=== PATIENT | male | born 1955 | race Caucasian/White ===

== ENCOUNTER 2016-10-11 09:39 | Outpatient (CLI) | payer OTHER ==
--- NOTE | 2016-10-11 10:21 | DIAGNOSTIC IMAGING REPORT ---
PROCEDURE: XR CHEST 2 VIEW INDICATION: CHEST DISCOMFORT TECHNIQUE: PA and lateral views. COMPARISON: None. FINDINGS: Lungs are clear. Heart and mediastinum are normal. Thorax is normal. IMPRESSION: 1. Negative chest.
== END 2016-10-11 23:00 ==
LOC: XR SRH 09:39
DX: R07.89 Other chest pain (principal)

== ENCOUNTER → 2016-11-08 | Outpatient (CLI) | payer OTHER ==
--- NOTE | 2016-11-13 08:15 | DIAGNOSTIC IMAGING REPORT ---
PROCEDURE: 2-D M-mode echo Doppler CLINICAL INDICATION: Heart murmur TECHNIQUE: Standard technique COMPARISON: None available FINDINGS: The aortic valve exhibits normal appearing amplitude without evidence for stenosis or insufficiency. The mitral valve exhibits 2+ to 3+ MR no stenosis seen. The tricuspid valve is normal in configuration 1+ TR apparent with RVSP 40. The pulmonic valve is normal. Left atrial enlargement is apparent right atrium is normal in size. Right ventricular size and function is normal pressure is elevated at 40 LVH present LV contractility is normal with an ejection fraction of 55%. No abnormalities of the aortic order pericardium are appreciated IMPRESSION: Left Ventricular ejection fraction 55% with normal contraction LVH Left atrial enlargement 2+ to 3+ MR 1+ TR with RVSP 40
== END ==
LOC: US SRH 10-18 10:30
DX: I51.7 Cardiomegaly (principal)